=== PATIENT | female | born 2000 | race Caucasian/White ===

== ENCOUNTER 2019-03-25 23:30 | Inpatient (IN) | payer SELFPAY ==
[~2019-03-25] VITALS: Ht 165.1 cm; Wt 62.8 kg
[2019-03-25 23:52] VITALS: BP 139/87; PULSE 80; TEMP 98.1
[2019-03-26] VITALS (13 sets, daily range): BP systolic 104–141; BP diastolic 47–78; PULSE 68–98; TEMP 98.3–98.6
[2019-03-26] MEDS ORDERED: CAMILA0.35 MG PO (00:21)
[2019-03-26] MEDS ORDERED: PERCOCET 325 MG1 TA2 PO (00:22)
[2019-03-26] MEDS ORDERED: CIPRO 500MG TA500 MG PO (00:23)
[2019-03-26] MEDS ORDERED: ZOFRAN 4MG T4 MG/TAB PO (00:25)
--- NOTE | 2019-03-26 00:55 | NUR ---
PATIENT TO ROOM 321 AT 2330. A&O. AMBULATED FROM STRETCHER TO BED WITHOUT DIFFICULTY. C/O MODERATE PAIN TO ABD AND MILD NAUSEA. NS INFUSING INTO L FA IV. X4 PREVIOUS LAP SITES NOTED, CDI. NO FURTHER NEEDS AT THIS TIME. WILL CONTINUE TO MONITOR.
--- NOTE | 2019-03-26 08:00 | NUR ---
Patient in bed resting. Alert and oriented x3. Shift assessment complete. Family at bedside. Denies further needs at this time.
[2019-03-26 08:24] LABS: BASO # 0.1 (0.0-0.2); BASO % 0.8 % (0.0-2.0); EOS # 0.2 (0.0-0.7); EOS % 2.8 % (0-4.0); GRAN # 3.8 (1.4-6.5); GRAN % 58.1 % (42.2-75.2); HEMOGLOBIN 11.9 g/dl (12.0-15.0); LYMPH # 1.9 (1.2-3.4); LYMPH % 28.8 % (20.0-51.0); MEAN CELL VOLUME 84 fl (80.0-95.0); MEAN CORPUSCULAR HEMOGLOBIN 27 pg (26.0-32.0); MEAN CORPUSCULAR HGB CONC 32 g/dl (33.0-37.0); MEAN PLATELET VOLUME 10.5 fl (7.4-10.4); MONO # 0.6 (0.1-0.6); MONO % 9.2 % (1.7-9.3); PLATELET COUNT 288 K/mm3 (130-400); REDCELL DISTRIBUTION WIDTH-CV 12.6 % (11.5-14.5)
[2019-03-26 08:26] LABS: HEMATOCRIT 36.8 % (35.0-45.0)
[2019-03-26 08:29] LABS: ALBUMIN 4.1 gm/dL (3.5-5.0); BILIRUBIN,TOTAL 4.2 mg/dL (0.0-1.0); CALCIUM 9.5 mg/dL (8.4-10.2); CREATININE, serum 0.69 (0.52-1.25); MAGNESIUM 1.9 mg/dL (1.6-2.3); POTASSIUM 3.7 mmol/L (3.4-5.0); TOTAL PROTEIN 7.3 gm/dL (6.4-8.2)
--- NOTE | 2019-03-26 10:14 | NUR ---
Initial visit; Patient thanked It Senior Analyst for looking in on her and offering Spiritual Care. It Senior Analyst will keep Olga in her prayers.
--- NOTE | 2019-03-26 11:19 | NUR ---
Gluing Machine Operator Automatic met with patient to discuss discharge planning. Patient lives in [place], [place] with her brother Hira (ph#[phone]) but has been in [place] visiting her sister, Mary Ellen (ph#[phone]). Patient does not have a primary care physician and does not have insurance coverage. DONNA contacted Maverick, Financial Counselor who advised he has completed a financial assistance application with patient but is unable to assist patient in applying for [facility] as she is not a resident of [place]. Patient is independent with [employer] and does not use any DME. Patient does not have a pharmacy she regularly uses in [place], but states she can get medications in [place] from the [facility] if needed. Patient states she has transportation arrangements to get back home to [place], which is her plan upon discharge. SW attended clinical rounds with the team and patient likely to discharge tomorrow. Patient states she would like to get home as soon as possible.
--- NOTE | 2019-03-26 16:30 | NUR ---
Patient up to room from OR. Alert and oriented x 3. Post op fluids infusing per orders. Post op VSS. Denies further needs at this time. Will continue to monitor.
--- NOTE | 2019-03-26 19:12 | NUR ---
Patient tolerating clear liquid diet. Denies pain at this time. Denies further needs at this time. Reported off to is support analyst.
[2019-03-27 04:23] VITALS: BP 103/45; PULSE 71; TEMP 98.2
[2019-03-27 07:16] LABS: BASO # 0.1 (0.0-0.2); BASO % 0.7 % (0.0-2.0); EOS # 0.2 (0.0-0.7); EOS % 3.4 % (0-4.0); GRAN % 57.3 % (42.2-75.2); HEMOGLOBIN 11.4 g/dl (12.0-15.0); LYMPH # 2.2 (1.2-3.4); LYMPH % 31.9 % (20.0-51.0); MEAN CELL VOLUME 84 fl (80.0-95.0); MEAN CORPUSCULAR HEMOGLOBIN 27 pg (26.0-32.0); MEAN CORPUSCULAR HGB CONC 32 g/dl (33.0-37.0); MEAN PLATELET VOLUME 10.9 fl (7.4-10.4); MONO # 0.5 (0.1-0.6); MONO % 6.6 % (1.7-9.3); PLATELET COUNT 275 K/mm3 (130-400); RED BLOOD COUNT 4.22 M/mm3 (4.10-5.30); REDCELL DISTRIBUTION WIDTH-CV 12.8 % (11.5-14.5)
[2019-03-27 07:22] LABS: ALBUMIN 3.9 gm/dL (3.5-5.0); BILIRUBIN,TOTAL 3.5 mg/dL (0.0-1.0); CALCIUM 9.5 mg/dL (8.4-10.2); CREATININE, serum 0.6 (0.52-1.25); POTASSIUM 4.2 mmol/L (3.4-5.0)
[2019-03-27 07:23] LABS: HEMATOCRIT 35.4 % (35.0-45.0)
[2019-03-27 07:34] VITALS: BP 113/61; PULSE 85; TEMP 98.8
--- NOTE | 2019-03-27 10:05 | NUR ---
Patient alert and oriented, answers questions appropriately. See assessment. Abdomen soft, non tender, non distended. Bowel sounds active x4 quads. +Flatus. No bowel movement. No c/o pain or discomfort.
[2019-03-27 10:41] VITALS: BP 117/64; PULSE 69; TEMP 98.4
[2019-03-27 15:14] VITALS: BP 117/49; PULSE 71; TEMP 98.5
--- NOTE | 2019-03-27 16:14 | NUR ---
Discharge instructions reviewed with patient, verbalized understanding. Discharged ambulatory to auto/home with family at 1640.
== END 2019-03-27 16:10 | disposition home or self-care (01) | DRG 395 ==
LOC: SURG 23:30 → EDBD 23:30 → SURG 03-27 16:10
PROVIDERS: Internal Medicine Gastroenterology; Nurse Practitioner Family; Physician Assistant; ADMIT Student in an Organized Health Care Education/Training Program
PROC: 0FC98ZZ Extirpation of Matter from Common Bile Duct, Via Natural or Artificial Opening Endoscopic (ICD-10-PCS; principal; 2019-03-26 15:45)
DX: K91.86 Retained cholelithiasis following cholecystectomy (principal); K59.00 Constipation, unspecified; R74.0 Nonspecific elevation of levels of transaminase and lactic acid dehydrogenase [LDH]; Z90.49 Acquired absence of other specified parts of digestive tract; Z88.0 Allergy status to penicillin; Z88.2 Allergy status to sulfonamides; Z79.891 Long term (current) use of opiate analgesic
CPT/HCPCS: 99222-AI; C1769; J1200; J2704; J3010; J7030; Q9967